=== PATIENT | female | born 1980 | race Caucasian/White ===

== ENCOUNTER → 2016-12-12 | Day surgery (SDC) | payer OTHER ==
[~2016-12-12] VITALS: Ht 152.4 cm; Wt 54.0 kg
--- NOTE | 2016-12-12 14:52 | Operative Report ---
Operative/Inv Procedure Report Surgery Date: 12/12/16 Name of Procedure: D&C hysteroscopy Pre-Operative Diagnosis: Atypical glandular cells of undetermined significance Post-Operative Diagnosis: Same Estimated Blood Loss: 50ml to 100ml Surgeon/Political Science Chair: JAVIER OCAMPO,NICOL James Anesthesia: moderate sedation Operative/Procedure Note Note: Patient was taken the operating room placed prone position after adequate anesthesia patient placed in dorsolithotomy position the vagina from dorsal fashion bladder was catheterized examination under anesthesia performed at this point a single-tooth tenaculum was placed on the Intralipid cervix gentle downward traction performed cervix was dilated 20 Hegar to left insertion hysteroscope scope was inserted lining of the uterus was normal no abnormalities no adnexal masses hysteroscope was removed sharp Denisa the endometrial lining performed curet sharp curettage and cervical lining was performed 2 specimen sent to pathology hemostasis was apparent advancements removed from the vagina the patient was returned spine position she was awakened from anesthesia and transported recovery room awake alert with counts correct
== END ==
LOC: STS 03:03
DX: R87.619 Unspecified abnormal cytological findings in specimens from cervix uteri (principal); J45.909 Unspecified asthma, uncomplicated
CPT/HCPCS: 88305; J2250